=== PATIENT | male | born 1960 | race Caucasian/White ===

== ENCOUNTER 2018-09-30 05:54 | Emergency (ER) | payer SELFPAY ==
[2018-09-30 05:57] VITALS: BP 171/100; PULSE 136; RESP 20; TEMP 36.9; O2SAT 99; BMI 21.6
--- NOTE | 2018-09-30 06:06 | ED.VIS.GEN ---
History of Present Illness Chief Complaint: Cellulitis Informant: Patient Narrative: Stated he has been getting some itchy rashes over the last few weeks. He had one on his left forearm. One on his right inner thigh. And one on his back. He is unsure what the causes. The itch. And they go away after several days. He has been using Benadryl and aspirin as needed. Is never had this before. He is having no pain with these areas. Over the last couple days she is noticed increased itching to his right ankle. He developed some blistering and itchy sensation inflammation and redness. He is not having any pain in this area. No new medications. No history of bullous impetigo. Current severity is mild. Past Medical History - Allergies and Home Meds Allergies/Adverse Reactions: Allergies No Known Allergies Allergy (Verified 09/30/18 05:56) Primary Care Physician: Armando Bains MD [Primary Care Provider] - Prior records reviewed: Yes Past Medical History: - - Reviewed Surgical History: noncontributory Smoking Status: Current every day smoker Alcohol: None Drugs: None Review of Systems General: Denies: Chills, Fever, Sweats Eyes: Denies: Visual changes - bilaterally, Diplopia ENT: Denies: Rhinorrhea, Sore throat Cardiovascular: Denies: Chest pain, Palpitations Respiratory: Denies: Dyspnea, Cough, Dyspnea on exertion Gastrointestinal: Denies: Abdominal pain, Nausea, Vomiting, Diarrhea, Melena, Hematochezia Genitourinary: Denies: Dysuria, Hematuria, Frequency Musculoskeletal: Denies: Back pain, Extremity Pain Skin: Reports: Rash. Denies: Wounds Neurological: Denies: Headache, Weakness, Numbness Physical Exam Vital Signs/Narrative: Vital Signs Temp Pulse Resp BP Pulse Ox 09/30/18 05:57 98.5 F 136 H 20 H 171/100 H 99 General: Well nourished, Well developed, No Acute Distress Head: Normocephalic, Atraumatic Eyes: Perrl, EOMI ENT: Moist mucous membranes, No rhinorrhea Neck: Supple, Nontender Cardiovascular: Regular rate, Regular rhythm, No murmurs Respiratory: No distress, CTA bilaterally, Chest nontender Abdomen: Soft, Nontender, Nondistended, Normal bowel sounds Back: Nontender, Normal Inspection Extremities: Nontender, No edema Skin: - - She has some inflammation in his right ankle with some mild dermatitis maculopapular rash. He has a 1 x 1 cm blister. Patient has mild rash to his lower back and left upper scapular region.. Negative for: Normal color, No rash Neurological: Alert, Oriented x3, Cranial nerves II-XII grossly intact, Normal Strength, Normal Sensation Psychological: Normal affect, Normal Mood Diagnostic/Tx/Re-eval - Medical Decision Making Patient given dose IV fluids and dose of Solu-Medrol. Lab work obtained. Lab work is unremarkable. No leukocytosis. At this time I feel this is a allergic reaction. Patient given a prescription for prednisone for home. He will be given a taper. He will also use Benadryl. He will be given a referral to a family doctor. At this time this appears to be a contact related dermatitis with the blister. I feel the blister will likely get infected therefore I will unroofed it. This was done without complication with an 18-gauge needle. Area was washed with alcohol prep prior. Bacitracin and sterile dressing applied. Heart rate down to 110. patient will keep this area clean and follow-up as an outpatient ED Disposition - Plan for ED Patient: Disposition: Home or Assisted Living Diagnosis: Allergic dermatitis Instructions: Contact Dermatitis Prescriptions: Prednisone 10 mg PO DAILY #63 tab Prescription Printed Referrals: Armando Bains MD [Primary Care Provider] -
[2018-09-30] MEDS: MethylPREDNISolone 125 MG/2 ML Vial IV (06:13)
[2018-09-30] MEDS: 0.9% Normal Saline 1,000 ML 1000 ML IV (06:13)
[2018-09-30 06:21] LABS: Absolute Lymphocyte Count 1.89 X10^3/uL (0.83-4.51); Absolute Neutrophil Count 8.2 X10^3/uL (2.0-7.7); Basophil# 0.01 X10^3/uL; Basophil% 0.1 % (0-1); Eosinophil# 0.05 X10^3/uL; Eosinophils% 0.5 % (0-5); Hematocrit 44.9 % (40-54); Hemoglobin 15.6 g/dL (13.0-16.5); Lymphocyte # 1.89 X10^3/ul (4.0); Lymphocyte % 17.3 % (19-41); Mean Corp Hgb Conc 34.7 g/dL (32-36); Mean Corpuscular Hgb 30.6 pg (27.0-32.0); Mean Corpuscular Volume 88.2 fL (80-94); Monocyte# 0.72 X10^3/uL; Monocyte% 6.6 % (0-10); NRBC Flagged by Analyzer 0 % (0-5); Neutrophil # 8.23 X10^3/uL (2.7-7.7); Neutrophil % 75.1 % (47-70); Platelet Count 284 K/mm3 (150-450); RBC Distribution Width CV 12.6 % (11.6-14.6); RBC Distribution Width SD 41.4 fl (35.1-43.9); Red Blood Count 5.09 M/mm3 (4.6-6.2); White Blood Count 10.9 K/mm3 (4.4-11.0)
[2018-09-30 06:30] VITALS: BP 134/85; PULSE 113; O2SAT 98
[2018-09-30 06:39] VITALS: BP 136/91; PULSE 113; RESP 16; TEMP 36.9; O2SAT 100
[2018-09-30 06:41] LABS: Anion Gap 6 (5-15); BUN 17 mg/dL (7-18); BUN/Creat Ratio 15.7 RATIO (10-20); Calcium,Total 8.9 mg/dL (8.5-10.1); Chloride 105 mmol/L (98-107); Creatinine, Serum 1.08 mg/dL (0.70-1.30); EST Glomerular Filtration Rate 75 mL/min (>60); Est Glom Filt Rate - Afr Amer 90 mL/min (>60); Estimated Creatinine Clearance 73.01 ml/min; Glucose 106 mg/dL (74-106); Sodium Level 137 mmol/L (136-145)
[2018-09-30 07:17] VITALS: BP 136/102; PULSE 107; RESP 16; O2SAT 99
== END 2018-09-30 07:19 | disposition home or self-care (01) ==
LOC: ED 07:04
PROVIDERS: Emergency Provider Emergency Medicine
DX: L23.9 Allergic contact dermatitis, unspecified cause (principal); S90.521A Blister (nonthermal), right ankle, initial encounter; X58.XXXA Exposure to other specified factors, initial encounter; Y93.9 Activity, unspecified; Y92.9 Unspecified place or not applicable; Y99.9 Unspecified external cause status; F17.200 Nicotine dependence, unspecified, uncomplicated; Z79.82 Long term (current) use of aspirin; Z79.899 Other long term (current) drug therapy
CPT/HCPCS: 10060; 80048; 85025; 96361; 96374; 99283; J7030; A4216